=== PATIENT | male | born 1985 | race Caucasian/White ===

== ENCOUNTER 2016-07-01 10:56 | Emergency (ER) | payer MEDICAID, OTHER ==
[2016-07-01] MEDS ORDERED: oxyCOD/ACETAMIN 5 MG/325 MG TABLET PO STA (12:23)
[2016-07-01] MEDS ORDERED: oxyCOD/ACETAMIN 5 MG/325 MG TABLET PO ONE (12:26)
== END 2016-07-01 12:31 | disposition home or self-care (01) ==
DX: M54.5 Low back pain (principal); G89.29 Other chronic pain; F17.200 Nicotine dependence, unspecified, uncomplicated
CPT/HCPCS: 99283; A9270

== ENCOUNTER 2016-11-21 12:56 | Emergency (ER) | payer SELFPAY ==
[2016-11-21 13:03] VITALS: BP 140/76
--- NOTE | 2016-11-21 13:33 | ED Physician Documentation ---
PD HPI HEENT - Stated complaint Stated Complaint: DENTAL PAIN - Chief complaint Chief Complaint: Heent - History obtained from History obtained from: Patient - History of Present Illness Timing - onset: How many days ago (2) Timing - duration: Days (2) Timing - details: Gradual onset, Still present Location: Tooth Improves: Medication Worsens: Everything Similar symptoms before: Diagnosis (dental infection) Recently seen: Surgery - Additional information Additional information: 31-year-old male had a left upper molar extracted 6 days ago and 2 days ago he began to develop increased pain in the area he was not able to sleep last night secondary to the increased pain he does state that his tooth was large with long roots and he was only able to hold the dressing in place for 2 days.He has not had fever he has had increased pain and he does not tolerate pain well. Review of Systems Constitutional: denies: Fever Eyes: denies: Decreased vision Ears: denies: Ear pain Throat: reports: Dental pain / toothache GI: denies: Nausea, Vomiting Musculoskeletal: denies: Neck pain, Back pain, Extremity pain Neurologic: denies: Generalized weakness, Focal weakness, Numbness PD PAST MEDICAL HISTORY - Past Medical History Past Medical History: Yes Neuro: Headache/migraine Musculoskeletal: Chronic back pain Other Past Medical History: cluster headaches - Past Surgical History Past Surgical History: Yes General: Appendectomy - Present Medications Home Medications: Ambulatory Orders Medication Instructions Recorded Confirmed Amoxicillin 500 mg PO TID #21 capsule 11/21/16 oxyCODONE/ACET 5/325 [Percocet 5 1 each PO Q4-6H PRN #14 tablet 11/21/16 mg/325 mg] - Allergies Allergies/Adverse Reactions: Allergies Allergy/AdvReac Type Severity Reaction Status Date / Time No Known Drug Allergies Allergy Verified 11/21/16 13:03 - Social History Does the pt smoke?: Yes Smoking Status: Current every day smoker Does the pt drink ETOH?: No Does the pt have substance abuse?: Yes - Immunizations Immunizations are current?: Yes - POLST Patient has POLST: No PD ED PE NORMAL - Vitals Vital signs reviewed: Yes (Hypertension) - General General: No acute distress, Well developed/nourished - HEENT HEENT: Atraumatic, PERRL, EOMI, Other (There is an empty socket where the tooth was extracted there is no debris in the socket the area has mild inflammation associated.) - Neck Neck: Supple, no meningeal sign, No bony TTP - Respiratory Respiratory: No respiratory distress - Derm Derm: Normal color, Warm and dry, No rash - Extremities Extremities: No deformity, No edema - Neuro Neuro: No motor deficit, No sensory deficit - Psych Psych: Normal mood, Normal affect Results - Vitals Vitals: Vital Signs - 24 hr 11/21/16 13:01 Temperature 36.1 C L Heart Rate 65 Respiratory 18 Rate Blood Pressure 140/76 H O2 Saturation 100 Oxygen O2 Source Room air PD MEDICAL DECISION MAKING - ED course Complexity details: considered differential, d/w patient ED course: 31-year-old male with recent tooth extraction has increased pain and foul smell from the area the tooth socket is rinsed with saline and filled with dry socket paste. Departure - Departure Disposition: 01 Home, Self Care Clinical Impression: Dry tooth socket Condition: Stable Instructions: ED Socket Dry Follow-Up: Yenny Pollack ARNP [Primary Care Provider] - Prescriptions: Amoxicillin 500 mg PO TID #21 capsule oxyCODONE/ACET 5/325 [Percocet 5 mg/325 mg] 1 each PO Q4-6H PRN #14 tablet PRN Reason: Pain Comments: Today in the Emergency Department your blood pressure was elevated. This can happen from the stress of the visit itself, from a current illness or circumstance or from uncontrolled hypertension. If you take blood pressure medications take your usual mediations, have your blood pressure re-checked in an appropriate setting and follow up any elevation with your primary care doctor.
== END 2016-11-21 13:41 | disposition home or self-care (01) ==
LOC: ED 12:56
DX: M27.3 Alveolitis of jaws (principal)
CPT/HCPCS: 99283

== ENCOUNTER 2017-05-09 09:32 | Emergency (ER) | payer OTHER ==
[2017-05-09] MEDS ORDERED: KETOROLAC 60 MG/2 ML VIAL IM STA (11:10)
[2017-05-09] MEDS ORDERED: DEXAMETHASONE 10 MG/ML VIAL PO STA (11:10)
--- NOTE | 2017-05-09 11:13 | ED Physician Documentation ---
PD HPI BACK INJURY - Stated complaint Stated Complaint: BACK INJURY - History obtained from History obtained from: Patient - History of Present Illness Location: Right, Upper Type of injury: Twist Where injury occurred: Home Timing - onset: How many days ago (2) Timing - duration: Days (2) Timing - details: Abrupt onset, Still present. No: Waxing and waning Pain level max: 2 Quality: Pain, Spasm, Sharp Improved by: Rest Worsened by: Moving, Palpating Associated symptoms: No: Fever, Weakness, Numbness, Incontinent of urine, Unable to urinate, Hematuria, Incontinent of stool Similar symptoms before: Diagnosis (lumbar disc disease) Recently seen: Not recently seen - Additional information Additional information: 31-year-old male was at a birthday constitution party for his middle daughter when he tried to do a handstand and was knocked over by his who was startled. He strained his back when this occurred and this did not hurt much initially and later began to hurt quite a bit more he was barely able to get out of bed this morning. Review of Systems Constitutional: denies: Fever, Chills, Myalgias Eyes: denies: Decreased vision Ears: denies: Ear pain Nose: denies: Congestion Throat: denies: Sore throat Cardiac: denies: Chest pain / pressure, Palpitations Respiratory: denies: Dyspnea, Cough GI: denies: Abdominal Pain, Nausea, Vomiting : denies: Dysuria, Frequency Skin: denies: Rash Musculoskeletal: reports: Back pain. denies: Neck pain, Extremity pain PD PAST MEDICAL HISTORY - Past Medical History Past Medical History: Yes Neuro: Headache/migraine Musculoskeletal: Chronic back pain - Past Surgical History Past Surgical History: Yes General: Appendectomy - Present Medications Home Medications: Ambulatory Orders Medication Instructions Recorded Confirmed Cyclobenzaprine [Flexeril] 10 mg PO TID PRN #20 tablet 05/09/17 HYDROcod/ACETAM 5/325 [[place] 5/325] 1 - 2 ea PO Q6H PRN #15 tablet 05/09/17 - Allergies Allergies/Adverse Reactions: Allergies Allergy/AdvReac Type Severity Reaction Status Date / Time No Known Drug Allergies Allergy Verified 05/09/17 09:42 - Social History Does the pt smoke?: Yes Smoking Status: Current every day smoker Does the pt drink ETOH?: No Does the pt have substance abuse?: Yes - Immunizations Immunizations are current?: Yes - POLST Patient has POLST: No PD ED PE NORMAL - Vitals Vital signs reviewed: Yes (Hypertensive) - General General: Alert and oriented X 3, No acute distress, Well developed/nourished - HEENT HEENT: Atraumatic, PERRL - Cardiac Cardiac: RRR, No murmur - Respiratory Respiratory: No respiratory distress, Clear bilaterally, Other (There is specific right rhomboid muscle spasm at the insertion. ) - Abdomen Abdomen: Soft, Non tender - Back Back: No CVA TTP, No spinal TTP - Derm Derm: Normal color, Warm and dry, No rash - Extremities Extremities: No deformity, No edema - Neuro Neuro: No motor deficit, No sensory deficit Eye Opening: Spontaneous Motor: Obeys Commands Verbal: Oriented GCS Score: 15 - Psych Psych: Normal mood, Normal affect Results - Vitals Vitals: Vital Signs - 24 hr 05/09/17 05/09/17 09:39 11:37 Temperature 36.3 C L 36.6 C Heart Rate 72 65 Respiratory 16 18 Rate Blood Pressure 133/85 H 112/72 O2 Saturation 100 97 Oxygen O2 Source Room air PD MEDICAL DECISION MAKING - ED course Complexity details: reviewed old records, considered differential, d/w patient ED course: 31 y/o male with rhomboid muscle spasm after walking on his hands. He is treated with decadron and toradal in the ED. Departure - Departure Disposition: 01 Home, Self Care Clinical Impression: Strain of thoracic spine Qualifiers: Encounter type: initial encounter Qualified Code(s): S29.019A - Strain of muscle and tendon of unspecified wall of thorax, initial encounter Condition: Stable Instructions: ED Sprain Thoracic Spine Follow-Up: [facility] [Provider Group] Prescriptions: Cyclobenzaprine [Flexeril] 10 mg PO TID PRN #20 tablet PRN Reason: Spasms HYDROcod/ACETAM 5/325 [[place] 5/325] 1 - 2 ea PO Q6H PRN #15 tablet PRN Reason: Pain Comments: Today in the Emergency Department your blood pressure was elevated. This can happen from the stress of the visit itself, from a current illness or circumstance or from uncontrolled hypertension. If you take blood pressure medications take your usual mediations, have your blood pressure re-checked in an appropriate setting and follow up any elevation with your primary care doctor. Forms: Activity restrictions Discharge Date/Time: 05/09/17 11:44
[2017-05-09] MEDS ORDERED: CHERRY SYRUP 10 ML UDC PO ONE (11:20)
[2017-05-09 11:38] VITALS: BP 112/72
== END 2017-05-09 11:44 | disposition home or self-care (01) ==
LOC: ED 09:32
DX: S29.012A Strain of muscle and tendon of back wall of thorax, initial encounter (principal); X50.1XXA Overexertion from prolonged static or awkward postures, initial encounter; Y92.019 Unspecified place in single-family (private) house as the place of occurrence of the external cause; F17.200 Nicotine dependence, unspecified, uncomplicated
CPT/HCPCS: 96372; 99283; A9270

== ENCOUNTER 2017-11-13 14:51 | Outpatient (CLI) | payer OTHER | END 2017-11-13 14:52 | disposition EMS.NT | LOC: EMS 14:51 | PROVIDERS: ATTEND Surgery | DX: S01.531A Puncture wound without foreign body of lip, initial encounter (principal); Y04.2XXA Assault by strike against or bumped into by another person, initial encounter ==